=== PATIENT | female | born 1990 | race Caucasian/White ===

== ENCOUNTER 2019-05-07 09:05 | Day surgery (SDC) | payer OTHER ==
[2019-05-07 10:31] VITALS: BMI 38.3
[2019-05-07 10:37] LABS: BASO % 0.3 % (0-2.0); EOS % 1.4 % (0-4.5); HEMATOCRIT 41.7 % (32.4-45.2); HEMOGLOBIN 14.2 GM/dL (10.7-15.3); MCH 28.3 pg (25.7-33.7); MCHC 34.1 g/dl (32.0-36.0); MEAN CELL VOLUME 83.2 fl (80-96); MEAN PLT VOLUME 8.5 fl (7.5-11.1); MONO % 6.9 % (3.8-10.2); NEUT % 66.4 % (42.8-82.8); PLATELET COUNT 298 K/MM3 (134-434); RBC 5.02 M/mm3 (3.60-5.2); RDW 14.4 % (11.6-15.6); WHITE BLOOD COUNT 9.3 K/mm3 (4.0-10.0)
[2019-05-07 11:14] LABS: ALBUMIN 3.5 g/dl (3.4-5.0); BILIRUBIN,TOTAL 0.3 mg/dL (0.2-1); BLOOD UREA NITROGEN 11.6 mg/dL (7-18); CREATININE 0.7 mg/dL (0.55-1.3); POTASSIUM 4.3 mmol/L (3.5-5.1)
[2019-05-07] MEDS ORDERED: IBUPROFEN 400 MG TABLET (FP) PO PRN (13:38)
[2019-05-07] MEDS ORDERED: ACETAMINOPHEN 325 MG TABLET (FP) PO PRN (13:38)
--- NOTE | 2019-05-07 13:38 | HP ---
History & Physical Update - History History: No Change - Physical Physical: No Change - Assessment Assessment: No Change - Plan Plan: No Change (NO change in HP)
[2019-05-07] MEDS ORDERED: MIDAZOLAM HCL 2 MG/2 ML SINGLE DOSE VIAL ONE (14:26)
[2019-05-07] MEDS ORDERED: PROPOFOL 20 ML ONE (14:42)
[2019-05-07] MEDS ORDERED: DEXAMETHASONE SOD PHOSPHATE 4 MG/1 ML VIAL ONE (14:45)
--- NOTE | 2019-05-07 15:21 | OP ---
Operative Note - Note: Operative Date: 05/07/19 Pre-Operative Diagnosis: Missed Operation: Suction DC Post-Operative Diagnosis: Same as Pre-op Surgeon: Dominique Rose Anesthesia: General Estimated Blood Loss (mls): 25 Operative Report Dictated: Yes
[2019-05-07 17:00] VITALS: BP 119/60; PULSE 88; TEMP 97.7
--- NOTE | 2019-05-09 18:04 | PATH ---
Surgical Pathology Report Patient Name: CAROLINA MAIN [facility]. Rec. #: [id number] /Age/Gender: 1990 (Age: 28) / F Account: [id number] Location: [facility] SURGICAL Taken: 05/07/2019 Received: 05/08/2019 Reported: 05/09/2019 Physicians: Dominique Rose M.D. Specimen(s) Received PRODUCTS OF CONCEPTION Clinical History Missed Final Diagnosis PRODUCTS OF CONCEPTION, SUCTION DILATION AND CURETTAGE: IMMATURE CHORIONIC VILLI, DECIDUA, AND GESTATIONAL ENDOMETRIUM CONSISTENT WITH PRODUCTS OF CONCEPTION. Electronically Signed Rebecca Hendrickson M.D. Gross Description Received in formalin labeled "products of conception," is an 11.5 x 10.0 x 0.8 cm aggregate of red-brown soft tissue fragments admixed with blood clot. Villous tissue is identified. No somatic tissue is identified. A national account representative portion is submitted in one cassette. /05/08/2019 saudi05/08/2019
--- NOTE | 2019-05-14 11:35 | OP ---
DATE OF OPERATION: 05/07/2019 PREOPERATIVE DIAGNOSIS: Missed . OPERATION: Suction dilation and curettage. POSTOPERATIVE DIAGNOSIS: Missed . SURGEON: Dominique Rose MD ANESTHESIA: General. ESTIMATED BLOOD LOSS: 25 mL. DESCRIPTION OF PROCEDURE: Patient was taken to the operating room, placed in dorsal lithotomy position, prepped and draped in the usual sterile fashion. A time-out was performed in accordance with hospital regulation. Speculum was placed in the vagina. Anterior lip of the cervix was grasped with a single-tooth tenaculum. Cervix was then dilated to accommodate the No. 8 suction curette. Suction curettage was then done. All contents were submitted to Pathology. All instruments were then removed. Estimated blood loss 25 mL. Patient tolerated the procedure well and was taken to recovery room in stable condition. DOMINIQUE ROSE M.D. JESSENIA/[id number]
== END 2019-05-07 17:05 | disposition home or self-care (01) ==
LOC: JASU-SURG 09:05
PROVIDERS: ATTEND Obstetrics & Gynecology
PROC: 10D17ZZ Extraction of Products of Conception, Retained, Via Natural or Artificial Opening (ICD-10-PCS; principal; 2019-05-07 11:30)
DX: O02.1 Missed abortion (principal)
CPT/HCPCS: 36415; 80053; 84702; 84703; 85025; 86850; 86900; 86901; 88305-TC; 94760